=== PATIENT | male | born 1975 | race Caucasian/White ===

== ENCOUNTER → 2017-06-22 | Outpatient (CLI) | payer BC ==
--- NOTE | 2017-06-22 12:37 | RAD ---
Indication fall. Laceration. Head injury. Noncontrast images of the head were obtained. No prior imaging of the head is available. No acute or significant calvarial finding is seen. The visualized paranasal sinuses appear normal. There is no subdural or epidural hematoma. The ventricles and sulci appear normal. There is no mass or midline shift. No hemorrhage is seen. No acute intracranial finding is apparent. IMPRESSION: No acute or significant finding seen intracranially in the head PQRS Compliance Statement: One or more of the following individualized dose reduction techniques were utilized for this examination: 1. Automated exposure control 2. Adjustment of the mA and/or kV according to patient size 3. Use of iterative reconstruction technique
== END | disposition home or self-care (01) ==
LOC: CT 11:56
PROVIDERS: ATTEND Physician Assistant
DX: S09.90XA Unspecified injury of head, initial encounter (principal); W19.XXXA Unspecified fall, initial encounter; Y93.89 Activity, other specified; Y92.89 Other specified places as the place of occurrence of the external cause; Y99.8 Other external cause status
CPT/HCPCS: 70450